=== PATIENT | male | born 1960 | race African-American/Black ===

== ENCOUNTER 2025-09-04 13:29 | Emergency (ER) | payer MEDICAID ==
[~2025-09-04] VITALS: Ht 182.9 cm; Wt 100.0 kg
[2025-09-04 13:33] VITALS: TEMP 98.2; O2SAT 97
[2025-09-04 14:51] LABS: PLATELET 117 x1000/uL (130-400); RED BLOOD CELL COUNT 3.98 mill/uL (4.7-6.1); RED CELL DISTRIBUTION WIDTH 15.1 % (11.6-14.6)
[2025-09-04] MEDS: HYDROCODONE/ACETAMINOPHEN 5/325MG TABLET PO ONE (15:31)
[2025-09-04 16:14] VITALS: BP 146/86; PULSE 63; RESP 16; O2SAT 100
== END 2025-09-04 17:30 | disposition home or self-care (01) ==
LOC: ER 13:50
DX: L76.22 Postprocedural hemorrhage of skin and subcutaneous tissue following other procedure (principal); E11.9 Type 2 diabetes mellitus without complications; I10 Essential (primary) hypertension; M25.562 Pain in left knee; Z79.82 Long term (current) use of aspirin; Z96.652 Presence of left artificial knee joint; Z98.890 Other specified postprocedural states
CPT/HCPCS: 36415; 85027; 99283